=== PATIENT | male | born 1995 | race Caucasian/White ===

== ENCOUNTER 2022-12-06 07:51 | Emergency (ER) | payer BC ==
[~2022-12-06] VITALS: Ht 188 cm; Wt 104.3 kg
[2022-12-06 08:21] VITALS: BP 124/69
[2022-12-06] MEDS ORDERED: Bactrim Ds Tab1 EACH PO (08:23)
== END 2022-12-06 08:23 | disposition home or self-care (01) ==
LOC: ER 07:51
DX: L02.413 Cutaneous abscess of right upper limb (principal); Z79.899 Other long term (current) drug therapy
CPT/HCPCS: 99282